=== PATIENT | female | born 1990 | race Caucasian/White ===

== ENCOUNTER 2023-08-05 09:57 | Outpatient (AMB) | payer OTHER, SELFPAY ==
--- NOTE | 2023-08-05 09:59 | AM.OFFWIN_ITS ---
Intake Vital Signs 08/05/23 10:11 Height 5 ft 6 in Weight 123 lb BMI 19.9 BP 120/72 Blood Pressure Location Lt brachial Position Sitting Pulse 80 Pulse Source Pulse Oximeter Temp 97.7 F Temp Source Temporal Artery Scan Pulse Oximetry (%) 97 Oxygen Delivery Method Room Air Intake Visit Reasons: EP congestion headache ear/throat pain (lobby) Intake Note: pt is here today for congestion headache ear throat pain started 4 days ago Patient Tobacco Use Status: Current everyday Tobacco user Allergies No Known Allergies Allergy (Verified 08/05/23 10:00) Do you need a note to return to daycare/school/sports/work: No HPI HPI Comments History of Present Illness Details This is a 33-year-old female who presented to the office complaining of viral URI symptoms. Patient complaining of nasal/sinus congestion, rhinorrhea, low-grade fever/chills, sore throat, bilateral otalgia, and productive cough. Patient states she has positive sick contact with her , [id number], and 3 children. She states they have had strep, COVID, and pneumonia. [facility] Social History Patient Tobacco Use Status: Current everyday Tobacco user Review of Systems Const All systems reviewed & are unremarkable except as noted in HPI and below Reports no additional complaints Eyes Reports no additional complaints ENT Reports no additional complaints Card Reports no additional complaints Resp Reports no additional complaints GI Reports no additional complaints Reports no additional complaints Musc Reports no additional complaints Skin/Breast Reports system reviewed and no additional complaints, except as documented Neuro Reports no additional complaints Psych Reports no additional complaints Endo Reports no additional complaints Abran/Lymph Reports no additional complaints Aller/Immun Reports no additional complaints Physical Exam Vital Signs: Last Vital Signs Temp 97.7 F 08/05/23 10:11 Pulse 80 08/05/23 10:11 BP 120/72 08/05/23 10:11 Pulse Ox 97 08/05/23 10:11 Oxygen Delivery Method Room Air 08/05/23 10:11 BMI result Body Mass Index 19.9 Const Other: Vital signs reviewed. Constitutional: Non-toxic appearing. No acute distress. Well-developed and well-nourished. HEENT: Normocephalic and atraumatic. Small effusion behind bilateral tympanic membranes without erythema or bulging. External auditory canals without erythema or edema bilaterally. Moist mucous membranes. Mild posterior pharyngeal erythema without edema or exudates. Skin: Warm and dry. No rashes or lesions noted. Neck: Full and painless range of motion. No cervical lymphadenopathy. Cardio: Regular rate and rhythm. No murmurs, gallops, or rubs. No lower extremity edema. No JVD. Pulmonary: No respiratory distress. No accessory muscle usage. Clear to auscultation bilaterally without wheezing, crackles, or rhonchi. Gastrointestinal: Soft, nontender, and nondistended in all 4 quadrants. Musculoskeletal: Normal range of motion in joints throughout the body. No deformity or other signs of injury. Neuro: Alert and oriented x4. Cranial nerves 2-12 grossly intact. No focal deficits appreciated. Psych: Normal mood and affect. Results AMB Rapid Strep AMB Rapid Strep Negative Last Edit by Maggie Zimmer on 08/05/23 10:15 Assessment & Plan Assessment & Plan (1) Viral URI with cough: Code(s): J06.9 - Acute upper respiratory infection, unspecified Plan: This is a 33-year-old female who presented to the walk-in clinic today complaining of viral URI symptoms. COVID/RSV/flu sent. Patient sent home on p.o. azithromycin 500 mg today followed by 250 mg daily x4 days as her family members were diagnosed with ?walking pneumonia? and she has a cough with sputum production and low-grade fevers. Recommended symptomatic management including rest, increased fluids, advil/tylenol for pain/fever, zinc/vitamin C supplementation, and over the counter throat lozenges/decongestants. Patient advised to follow up here or go to the emergency room for worsening/persistent symptoms. Orders: Orders SARS-CoV2/FLU/RSV Today R09.89 - Other specified symptoms and signs involving the circulatory and respiratory systems Medications: New azithromycin For 250 mg dose pack: take 500 mg today (day 1), then 250 mg for 4 days (days 2-5) PO 6 tabs 0RF Coding Level of Care Code Est Pt Level 3 (34066) Diagnoses Viral URI with cough J06.9
[2023-08-05 10:11] VITALS: BP 120/72; PULSE 80; TEMP 36.5; O2SAT 97; BMI 19.9
== END 2023-08-05 11:01 | disposition home or self-care (01) ==
PROVIDERS: Visit Provider Physician Assistant Medical
DX: J06.9 Acute upper respiratory infection, unspecified (principal)
CPT/HCPCS: 99213

== ENCOUNTER 2023-08-05 13:30 | Outpatient (REF) | payer OTHER, SELFPAY ==
[2023-08-05 14:37] LABS: Influenza A PCR NEGATIVE (Negative); Influenza B PCR NEGATIVE (Negative); Resp Syncy Virus RNA Qual PCR NEGATIVE (Negative); SARS COV2 PCR INHOUSE NEGATIVE (Negative)
== END 2023-08-05 13:31 | disposition home or self-care (01) ==
LOC: HO.LNP 13:30
PROVIDERS: Visit Provider Physician Assistant Medical
DX: R09.89 Other specified symptoms and signs involving the circulatory and respiratory systems (principal)
CPT/HCPCS: 0241U

== ENCOUNTER 2023-10-06 11:45 | Outpatient (AMB) | payer OTHER, SELFPAY ==
[2023-10-06 12:13] VITALS: BP 106/62; PULSE 76; TEMP 36.6; O2SAT 97; BMI 20.2
--- NOTE | 2023-10-06 12:13 | MHC.OFFWIV ---
Intake Vital Signs 10/06/23 12:13 Height 5 ft 6 in Weight 125 lb BMI 20.2 BP 106/62 Blood Pressure Location Rt brachial Position Sitting Pulse 76 Pulse Source Pulse Oximeter Temp 97.9 F Temp Source Temporal Artery Scan Pulse Oximetry (%) 97 Intake Visit Reasons: EST/School Physical(lobby) Patient Tobacco Use Status: Current everyday Tobacco user Allergies No Known Allergies Allergy (Verified 10/06/23 12:13) Do you need a note to return to daycare/school/sports/work: No HPI HPI Comments History of Present Illness Details 33 y/o female patient who presents to walk in clinic today for school Physical examination. Pt will be starting [employer] program in the Fall. with 3 children. Sexually active with one partner. No protection. Healthy no chronic conditions. 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 Will order Titers today and Blood Tspot. PFSH Social History Patient Tobacco Use Status: Current everyday Tobacco user Review of Systems Const All systems reviewed & are unremarkable except as noted in HPI and below Physical Exam Vital Signs: Last Vital Signs Temp 97.9 F 10/06/23 12:13 Pulse 76 10/06/23 12:13 BP 106/62 10/06/23 12:13 Pulse Ox 97 10/06/23 12:13 BMI result Body Mass Index 20.2 Const General: comfortable and no acute distress Nutritional Appearance: thin Orientation/consciousness: patient oriented x3 HEENT Head: Yes normocephalic Ears: external ears normal and TM abnormal with fluid behind the TM bilateral General nose exam: Normal nasal mucous membranes and turbinates present Face and sinus: Yes sinuses nontender Mouth: moist mucous membranes Teeth and gingiva: dentition normal Throat: Yes posterior oropharynx normal, Yes tonsils normal and Yes uvula midline Eyes Conjunctivae: conjunctivae normal Pupils: Equal, round and reactive pupils present EOM: EOMs intact bilaterally Direct Ophthalmoscopy: normal light reflex Neck Neck: Yes normal visual inspection, Yes full ROM, Yes trachea midline, Yes supple and Yes no JVD Thyroid: Thyroid normal Lymphatic: no lymphadenopathy noted Chest Chest palpation & inspection: normal inspection of the chest Resp Effort & Inspection: normal respiratory effort and able to speak in complete sentences Auscultation: clear to auscultation bilaterally, no crackles, no rales, no rhonchi and no wheezes Cardio Rate: regular rate Rhythm: regular rhythm GI Inspection: Yes normal to inspection, No Abdominal wall edema and No distended Palpation (GI): Soft to palpation, not firm, nontender, no guarding, not rigid and No hepatosplenomegaly present Percussion: Yes normal to percussion Auscultation: normal bowel sounds Rectal Exam - Female: deferred General: Yes no CVA tenderness and Yes deferred Back/Spine/Pelvis Back: no CVA tenderness and No back tenderness Cervical Spine: normal cervical lordosis and cervical ROM normal Thoracic/Lumbar Spine: thoracic and lumbar spine normal to inspection and thoraco-lumbar ROM normal Skin General skin exam: no rashes or lesions noted Neuro General: patient oriented x3, gait normal and moves all extremities Cranial nerves: Yes Equal, round and reactive pupils present Motor exam (neuro): 5/5 motor strength present throughout Extrem General: Yes normal to inspection, Yes full ROM and Yes no joint enlargement Psych Speech and movement: Normal speech and movement present Assessment & Plan Assessment & Plan (1) School physical exam: Code(s): Z02.0 - Encounter for examination for admission to educational institution Plan: - healthy - Ordered Titers - I will fill out paperwork after Lab results. Orders: Orders Hepatitis BE Antibody Today Z02.0 - Encounter for examination for admission to educational institution T Spot TB Today Z02.0 - Encounter for examination for admission to educational institution MMR IgG Measles Mumps Rubella Today Z02.0 - Encounter for examination for admission to educational institution Varicella IgG Antibody Today Z02.0 - Encounter for examination for admission to educational institution Coding Level of Care Code Sports/Work/School Physical Diagnoses School physical exam Z02.0 Time Spent (min) 20
== END 2023-10-06 13:28 | disposition home or self-care (01) ==
PROVIDERS: Visit Provider Nurse Practitioner Family
DX: Z02.0 Encounter for examination for admission to educational institution (principal)
CPT/HCPCS: 99213

== ENCOUNTER 2023-10-06 12:35 | Outpatient (REF) | payer OTHER, SELFPAY ==
[2023-10-07 22:04] LABS: Hepatitis BE Antibody NON-REACTIVE (NON-REACTIVE)
[2023-10-07 22:14] LABS: Mumps Virus IgG Antibody <9.00 AU/mL; Rubella IgG Antibody 1.44 Index
[2023-10-09 08:58] LABS: TS Negative Control Passed; TS Panel A 0; TS Panel B 0; TS Positive Control Passed; TSpotTB Negative (Negative)
== END 2023-10-06 12:36 | disposition home or self-care (01) ==
LOC: HO.HMGCLDS 12:35
PROVIDERS: Visit Provider Nurse Practitioner Family
DX: Z02.0 Encounter for examination for admission to educational institution (principal)
CPT/HCPCS: 36415; 86481; 86707; 86735; 86762; 86765; 86787